=== PATIENT | male | born 1975 | race Two or more races ===

== ENCOUNTER 2024-02-02 09:07 | Emergency (ER) | payer SELFPAY ==
[~2024-02-02] VITALS: Ht 180.3 cm; Wt 77.0 kg
[2024-02-02 09:11] VITALS: BP 153/93; PULSE 85; RESP 16; TEMP 98.3; O2SAT 98
[2024-02-02] MEDS ORDERED: AMOX1TAB16 MT (09:22)
[2024-02-02] MEDS ORDERED: IBUP-2029 MT (09:22)
== END 2024-02-02 10:15 | disposition home or self-care (01) ==
LOC: ER 09:07
DX: K04.7 Periapical abscess without sinus (principal); K02.9 Dental caries, unspecified
CPT/HCPCS: 99283

== ENCOUNTER 2024-11-09 12:44 | Emergency (ER) | payer MEDICARE, MEDICAID ==
[~2024-11-09] VITALS: Ht 175.3 cm; Wt 82.0 kg
[~2024-11-09 12:44] MED LIST: AMOX1TAB16 MT; IBUP-2029 MT
[2024-11-09 12:51] VITALS: BP 122/75; PULSE 89; RESP 16; TEMP 36.6; O2SAT 100
[2024-11-09] MEDS: ACETAMINOPHEN 500MG TABLET PO ONE (13:32)
[2024-11-09] MEDS: TETANUS, DIPHTHERIA, PERTUSSIS VAC/PF 0.5ML (>10YR OLD) IM ONE (13:32)
== END 2024-11-09 13:30 | disposition left against medical advice (07) ==
LOC: ER 12:44
DX: S09.90XA Unspecified injury of head, initial encounter (principal); Z79.899 Other long term (current) drug therapy; X58.XXXA Exposure to other specified factors, initial encounter; Y93.89 Activity, other specified; Y92.89 Other specified places as the place of occurrence of the external cause; Y99.8 Other external cause status
CPT/HCPCS: 99283

== ENCOUNTER 2024-11-12 07:55 | Emergency (ER) | payer MEDICARE, MEDICAID ==
[~2024-11-12] VITALS: Ht 172.7 cm; Wt 63.0 kg
[2024-11-12 08:03] VITALS: O2SAT 100
[2024-11-12 08:06] VITALS: BP 117/84; PULSE 74; RESP 16; TEMP 36.7; O2SAT 97
== END 2024-11-12 08:54 | disposition left against medical advice (07) ==
LOC: ER 07:55
DX: S40.021A Contusion of right upper arm, initial encounter (principal); Z53.21 Procedure and treatment not carried out due to patient leaving prior to being seen by health care provider; X58.XXXA Exposure to other specified factors, initial encounter; Y93.89 Activity, other specified; Y92.89 Other specified places as the place of occurrence of the external cause; Y99.8 Other external cause status